=== PATIENT | female | born 1970 | race Caucasian/White ===

== ENCOUNTER 2025-03-29 11:51 | Emergency (ER) | payer OTHER, SELFPAY ==
[2025-03-29] VITALS (8 sets, daily range): BP systolic 181–216; BP diastolic 87–102; PULSE 83–105; RESP 18–24; TEMP 36.5–36.7; O2SAT 96–100; BMI 34.2
--- NOTE | 2025-03-29 12:06 | CT_ITS ---
FINAL REPORT TECHNIQUE: Thin section axial images were obtained through the lumbar spine without contrast. Multiplanar reconstruction images were obtained from the axial data. Exam was performed using dose reduction technique per the ALARA principle. CLINICAL HISTORY: Mid lumbar back pain, disc herniation v fracture COMPARISON: None FINDINGS: There is no acute fracture or acute malalignment of the lumbar spine. Vertebral body height is preserved. No significant central canal stenosis or neural foraminal narrowing. There is no significant central stenosis. Evaluate and of the soft tissues is limited due to technique. No gross paraspinal abnormality. No large central disc herniation visualized. Very mild degenerative disease at L5-S1. IMPRESSION: No acute fracture of the lumbar spine. No large disc herniation. Consider MRI. Reviewed, Interpreted and Dictated by Aimee Vale MD Transcribed by Ai Ortega Authenticated and [facility]
--- NOTE | 2025-03-29 12:09 | ED_ITS ---
Discharge Plan Disposition Patient Disposition: Home, Self-Care Prescriptions Prescriptions: New methocarbamol 750 mg tablet 750 mg PO TID PRN (Reason: muscle spasm) Qty: 30 0RF lidocaine 5 % adhesive patch,medicated See Rx Instructions .ROUTE .COMPLEX Qty: 15 0RF Rx Instructions: leave on most painful area for up to 12 hrs Referrals Follow up/Referrals: Provider,Referral, MD [Primary Care Provider, Medical] - See instructions Activity Restrictions/Add. Instructions Additional Instructions/Restrictions: You likely have an strain of the muscles in your lower back. You can take the muscle relaxer as prescribed as well as lidocaine patches. You can also take Tylenol 1000 mg and 600 mg of ibuprofen every 6 hours as needed. Continue to rest but be mobile to ensure that you do not get too stiff. You can stretch at home. Avoid lifting heavy objects or twisting motion. I do encourage you to follow-up with one of the primary care providers if symptoms do not improve. I also encourage you to monitor your blood pressure over the weekend and if it continues to remain elevated, contact one of the primary care doctors on Tuesday to get close follow-up as you may need to be on blood pressure medication. If you develop any new or worsening symptoms, such as numbness or tingling in your genital region, difficulty urinating, urinating on yourself, inability control your bowels, weakness in 1 or both of your extremities, return to the emergency department for evaluation Clinical Impressions Clinical Impression: Lumbar strain Instructions Patient Instructions: DI for Low Back Pain Print Language Print Language: Kiswahili Discharge ED Provider: Jimmy Ramirez General Adult HPI General Chief complaint: Back Pain/Injury Stated complaint: WC-1000- pain in middle/lower back Time Seen by Provider: 03/29/25 11:53 Mode of Arrival: Wheelchair Source of Information: Patient Limitations: No Limitations History of Present Illness HPI narrative: Nicole Graves is a 55-year-old female with a history of hypertension who presents to the emergency department for complaints of back pain. Patient states that she was at work and was lifting up a pile of wet towels in her laundry basket when she had sudden pain in the middle of her lower back and it was extremely difficult to stand up straight due to pain. She states that the pain does not radiate down both legs. She has not had any direct trauma to her back. She denies any numbness or weakness down her legs or groin area. She is able to urinate here in the emergency department and has not had any incontinence. She denies any fevers or IV drug use. She states that the pain is in the middle of her lower back and does not radiate. Related Data Previous Rx's ?Medication ?Instructions ?Recorded lidocaine 5 % topical patch See Rx Instructions topica l 03/29/25 .COMPLEX #15 ea methocarbamol 750 mg tablet 750 mg PO TID PRN muscle s pasm #30 03/29/25 tabs Allergies Allergy/AdvReac Type Severity Reaction Status Date / Time No Known Allergies Allergy Verified 03/29/25 12:09 [facility] Disclaimer: The information contained in this section may have been updated after the patient was seen, as this information can be updated by other users. Social History Smoking Status: Former smoker alcohol intake: never current occupational status: employed Travel in the last 8 weeks?: None ROS Obtained: Yes Systems reviewed as appropriate & no additional complaints except as documented Physical Exam General General appearance: alert Comment: Appears uncomfortable Head Head exam: atraumatic Eye Eye exam: Present normal appearance ENT ENT exam: Present normal external ear exam Neck Neck exam: Present full ROM Chest Chest inspection: Present symmetric chest wall rise Respiratory Respiratory exam: Present normal lung sounds bilaterally; Absent respiratory distress, wheezes or stridor Cardiovascular Cardiovascular exam: Present regular rate and normal rhythm Abdominal Exam Abdominal exam: Present soft; Absent tenderness or guarding Extremities Exam Extremities exam: Present normal inspection Back Exam Back exam: Present normal inspection, vertebral tenderness (Mid lumbar spine tenderness without step-off or deformity), straight leg raise (R) and straight leg raise (L); Absent paraspinal tenderness Neurological Exam Neurological exam: Present alert and oriented X3 Psychiatric Psychiatric exam: Present normal affect Skin Skin exam: Present warm and dry Medical Decision Making Medical Records Screening: Per USPSTF and CDC recommendations, given the prevalence of disease in our region, it is our hospital?s policy to screen for HIV and viral Hepatitis for all patients aged 18 and over and those with ongoing risk factors. [place] Inquiry Pt receiving controlled substance: No Vital Signs: 03/29/25 12:08 03/29/25 12:09 03/29/25 12:12 Temperature 97.7 F Temperature Source Oral Pulse Rate 92 H 89 Pulse Rate [Right Radial] 105 H Respiratory Rate 18 24 18 Blood Pressure 216/87 H 216/87 H Blood Pressure [Right Arm] 216/87 H Blood Pressure Mean 147 Blood Pressure Mean [Right Arm] 130 Blood Pressure Source Automatic Cuff Blood Pressure Source [Right Arm] Automatic Cuff Blood Pressure Position [Right Arm] Sitting 02 Sat by Pulse Oximetry 100 99 99 Oxygen Delivery Method Room Air Room Air 03/29/25 12:30 03/29/25 13:00 03/29/25 13:31 Temperature Temperature Source Pulse Rate 92 H 86 94 H Pulse Rate [Right Radial] Respiratory Rate Blood Pressure 195/91 H 193/102 H Blood Pressure [Right Arm] Blood Pressure Mean Blood Pressure Mean [Right Arm] Blood Pressure Source Blood Pressure Source [Right Arm] Blood Pressure Position [Right Arm] 02 Sat by Pulse Oximetry 98 97 96 Oxygen Delivery Method Room Air Room Air Room Air 03/29/25 14:00 Temperature Temperature Source Pulse Rate 83 Pulse Rate [Right Radial] Respiratory Rate Blood Pressure 194/101 H Blood Pressure [Right Arm] Blood Pressure Mean Blood Pressure Mean [Right Arm] Blood Pressure Source Blood Pressure Source [Right Arm] Blood Pressure Position [Right Arm] 02 Sat by Pulse Oximetry 98 Oxygen Delivery Method Room Air Orders (Tests/Meds): ED MEDICATIONS Discontinued Medications Generic Name Dose Route Start Last Admin Trade Name Freq PRN Reason Stop Dose Admin Acetaminophen 1,000 mg 03/29/25 12:06 03/29/25 12:18 Acetaminophen 500mg Tab PO 03/29/25 12:07 1,000 mg ONCE ONE Administration Ketorolac Tromethamine 15 mg 03/29/25 12:06 03/29/25 12:18 Ketorolac 15mg/Ml Vial IM 03/29/25 12:07 15 mg ONCE ONE Administration Lidocaine 1 each 03/29/25 12:06 03/29/25 12:19 Lidocaine 5% Transdermal Patch TD 03/29/25 12:07 1 each ONCE ONE Administration Methocarbamol 750 mg 03/29/25 12:07 03/29/25 12:18 Methocarbamol 500mg Tablet PO 03/29/25 12:08 750 mg ONCE ONE Administration ORDERS Category Date Time Status CT lumbar spine wo con Stat Cat Scan 03/29/25 12:06 Completed Medical Decision Narrative: Nicole Graves is a 55-year-old female with a history of hypertension who presen ts to the emergency department for complaints of back pain. Patient states that she was at work and was lifting up a pile of wet towels in her laundry basket when she had sudden pain in the middle of her lower back and it was extremely difficult to stand up straight due to pain. She states that the pain does not radiate down both legs. She has not had any direct trauma to her back. She denies any numbness or weakness down her legs or groin area. She is able to urinate here in the emergency department and has not had any incontinence. She denies any fevers or IV drug use. She states that the pain is in the middle of her lower back and does not radiate. On arrival, patient is hypertensive with a blood pressure of 216/87, mildly tachycardic, afebrile, maintaining appropriate oxygen saturation on room air. Patient does state that she was diagnosed with high blood pressure but does not take medication anymore as it has been getting low. She believes her high blood pressure is related to her pain. Physical exam, stated above, revealed an uncomfortable appearing female in no distress. She was able to get up out of the wheelchair with assistance and walked with a shuffling gait. She has tenderness in the mid lumbar spine without step-off or deformity. No paraspinal muscle tenderness. No weakness in the lower extremities. 5 out of 5 strength with knee flexion and extension as well as dorsiflexion plantarflexion of the foot. Sensation grossly intact to the bilateral lower extremities. Positive straight leg raise bilaterally. Differential diagnosis includes, but is not limited to: Disc herniation, compression fracture, musculoskeletal pain, among others. I have low concern for cauda equina as patient has no red flag symptoms. The most morbid conditions were considered and workup was based on these. Workup in the emergency room included: CT of the lumbar spine without contrast. Patient was administered 250 mg of oral Robaxin, 1000 mg of Tylenol, 15 mg of IM Toradol and a lidocaine patch CT imaging was interpreted by me personally. No acute fracture or malalignment of the spine. No obvious disc bulge. See radiology report for details. On reassessment, patient has remained stable. She states that when she is sitting still, her pain is minimal but gets worse when she moves or stands for a period of time. I do feel that she likely has a lumbar strain as a source of her symptoms or small disc herniation that is not appreciated on CT scan. She is continue to remain hypertensive, however some this could be related to her pain. Recommended Robaxin, lidocaine patches, Tylenol and ibuprofen at home as well as continued mobility she states that she does not have a primary care provider. I encouraged her to track her blood pressures over the weekend and if they remain elevated that she is to contact one of the primary care providers listed to her for follow-up. Patient was given strict return precautions for any red flag symptoms of cauda equina. All questions were answered. She demonstrated understanding and was agreement this plan. She was then discharged from the emergency department in stable condition.. Critical Care Critical Care Time Critical Care Time: No
[2025-03-29] MEDS: METHOCARBAMOL 500MG TABLET 750 MG PO (12:18)
[2025-03-29] MEDS: ACETAMINOPHEN 500MG TAB 1000 MG PO (12:18)
[2025-03-29] MEDS: KETOROLAC 15MG/ML VIAL 15 MG IM (12:18)
[2025-03-29] MEDS: LIDOCAINE 5% TRANSDERMAL PATCH 1 EACH TD (12:19)
== END 2025-03-29 14:37 | disposition home or self-care (01) ==
PROVIDERS: Emergency Provider Student in an Organized Health Care Education/Training Program
DX: S39.012A Strain of muscle, fascia and tendon of lower back, initial encounter (principal); X50.0XXA Overexertion from strenuous movement or load, initial encounter
CPT/HCPCS: 72131; 96372; 99284; 99285; J1885